=== PATIENT | male | born 1990 | race Caucasian/White ===

== ENCOUNTER 2016-10-03 20:34 | Emergency (ER) | payer OTHER ==
[~2016-10-03] VITALS: Ht 182.9 cm; Wt 86.0 kg
[2016-10-03 21:07] VITALS: Ht 182.9 cm; Wt 86.0 kg
[2016-10-04] MEDS ORDERED: IBUP-1542 PO (00:01)
[2016-10-04 00:21] VITALS: BP 118/64; PULSE 75; RESP 19; TEMP 98.2
--- NOTE | 2016-10-04 01:32 | ERD ---
ER Documentation Chief Complaint Date/Time DATE: 10/04/16 TIME: 01:27 Chief Complaint Head injury, forgetful and hard time focusing HPI 26-year-old male complaining of headache and difficulty in concentration since last night. Patient stated that he hit his head on concrete floor hard last night. He was wrestling with a friend, when his friend who weighs approximately 300 pounds throat him on the floor hard. He hit his head, but denies loss of consciousness. Denies nausea or vomiting. Denies amnesia. Patient reports throbbing headache today, headaches better after taking Advil. Denies any prior head injuries. ROS All systems reviewed and are negative except as per history of present illness. Medications Home Meds Active Scripts Ibuprofen* (Motrin*) 600 Mg Tab, 600 MG PO Q6H Y for PAIN AND OR ELEVATED TEMP, #30 TAB Prov:APRIL CRUZ Stacy. 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 Awake, alert, and conversant, in no apparent distress Skin: Warm and dry Head: Normocephalic, slight erythema in the right parietal region, no swelling or ecchymosis. No step-offs. Eyes: Pupils equal, round, and reactive to light. Extraocular movements intact. No periorbital ecchymosis or step-off Ears: Canals patent. Tympanic membranes are clear. No meyer sign. No hemotympanum Nose/face: Atraumatic. Facial bones are nontender to palpation and stable with attempts at manipulation Neck: No midline point tenderness, step-off, or deformity to firm palpation of posterior cervical spine. Trachea midline. Carotids equal. No masses. No JVD. Full range of motion of the neck without limitation or pain Chest: No surface trauma. Nontender without crepitus or deformity. No palpable subcutaneous air. Lungs have good tidal volume, lungs clear to auscultate bilaterally Heart: Regular rate and rhythm. No murmur, rub, or gallop Abdomen: No abrasions or ecchymosis or surface trauma. No distention. Bowel sounds are active. Nontender to palpation; no guarding, rebound, or rigidity. No masses Back: No contusions, ecchymosis, or abrasions are noted. Nontender without step-off or deformity to firm midline palpation. No CVA tenderness or flank ecchymosis : Normal external genitalia with no blood at the meatus. No scrotal swelling or tenderness Pelvis: Nontender to palpation and stable to compression. Femoral pulses strong and equal Rectal: Normal tone. No rectal wall tenderness or masses. Stool is brown and heme negative Extremities: No surface trauma. Full range of motion without limitation or pain. Good strength in all extremities. Sensation to light touch intact. All peripheral pulses are intact and equal Neuro: Alert and oriented 4; GCS 15. Cranial nerves II - XII intact. Motor sensory exam nonfocal. Moves all extremities. Speech clear. Gait normal Procedures/MDM Well-appearing 26-year-old male presented ED with headache and difficulty in concentration after a mild head injury yesterday. Patient symptoms exam findings are consistent with concussion. I doubt intracranial bleeding. Discussed with patient the risks and benefits of CT imaging. I recommend against CT imaging due to low risk of intracranial injury. Patient agreed. Education provided for patient on concussion. Patient advised to return to ED if he experiences prolonged vomiting, or increased lethargy. Patient appears well, stable for discharge and outpatient management. Medical decision making shared with patient and family. Education provided to patient and family. Patient and family expressed understanding of the plan. Medications on discharge: Ibuprofen. Follow-up: Primary care provider in 2-3 days or return to ED if worse. Departure Diagnosis: Primary Impression: Concussion Condition: Stable Patient Instructions: After a Concussion Referrals: [facility] YOU HAVE RECEIVED A MEDICAL SCREENING EXAM AND THE RESULTS INDICATE THAT YOU DO NOT HAVE A CONDITION THAT REQUIRES URGENT TREATMENT IN THE EMERGENCY DEPARTMENT. FURTHER EVALUATION AND TREATMENT OF YOUR CONDITION CAN WAIT UNTIL YOU ARE SEEN IN YOUR DOCTORS OFFICE WITHIN THE NEXT 1-2 DAYS. IT IS YOUR RESPONSIBILITY TO MAKE AN APPOINTMENT FOR FOLOW-UP CARE. IF YOU HAVE A PRIMARY DOCTOR --you should call your primary doctor and schedule an appointment IF YOU DO NOT HAVE A PRIMARY DOCTOR YOU CAN CALL OUR PHYSICIAN REFERRAL HOTLINE AT IF YOU CAN NOT AFFORD TO SEE A PHYSICIAN YOU CAN CHOSE FROM THE FOLLOWING REPLACED BY [facility] [address] [facility] [facility] [address] [facility] [facility] [address] [facility] [address] [facility] [facility] [address] [facility]. [facility]. [address] Additional Instructions: Call your primary care doctor TOMORROW for an appointment during the next 2-3 days.See the doctor sooner or return here if your condition worsens before your appointment time. APRIL CRUZ NP October 04, 2016 01:32
== END 2016-10-04 00:21 | disposition home or self-care (01) ==
LOC: FTE 20:34
DX: S06.0X0A Concussion without loss of consciousness, initial encounter (principal); W22.8XXA Striking against or struck by other objects, initial encounter; Y92.9 Unspecified place or not applicable
CPT/HCPCS: 99283